=== PATIENT | male | born 1940 | race Caucasian/White ===

== ENCOUNTER 2021-03-15 13:45 | Outpatient (REF) | payer MEDICARE, SELFPAY ==
[2021-03-17 17:19] LABS: COVID-19 RT-PCR UVMMC Result Negative (Negative)
== END 2021-03-15 13:46 | disposition home or self-care (01) ==
LOC: NCHCN 13:45
PROVIDERS: Referring Provider Physician Assistant; Visit Provider Physician Assistant
DX: Z20.822 Contact with and (suspected) exposure to COVID-19 (principal)
CPT/HCPCS: U0003